=== PATIENT | female | born 1965 | race Two or more races ===

== ENCOUNTER 2017-10-18 02:23 | Emergency (ER) | payer OTHER ==
[~2017-10-18] VITALS: Ht 162.6 cm; Wt 76.5 kg
[~2017-10-18 02:23] MED LIST: CENTRUM COMPLE1 EACH PO; FIORICET,ESG1 TABLET PO; FISH OIL 1,0001 EACH PO; LUTEIN 15 MG S1 EACH PO; PEPCID COMPLET1 EACH PO; PROBIOTIC1 EACH PO; ROBITUSSIN AC,T10 ML PO; ROBITUSSIN DM118 ML PO; TESSALON PERLE100 MG PO; VIACTIV MULT PO
[2017-10-18 04:45] LABS: BASOPHIL COUNT 0.1 K/uL (0-0.1); EOSINOPHIL COUNT 0.1 K/uL (0-0.3); HEMATOCRIT 38.8 % (36.0-46.0); IMMATURE GRANULOCYTE (%) 0.2 % (0.0-0.7); INSTRUMENT ABS NEUTROPHIL CT 3.2 K/uL; LYMPHOCYTE COUNT 1.8 K/uL (1.0-2.8); MCH 28.4 PG (29.0-34.0); MCV 83.6 FL (83-99); MONOCYTE COUNT 0.7 K/uL (0-0.8); NEUTROPHIL COUNT 3.2 K/uL (1.8-6.4); PLATELET COUNT 347 K/uL (156-360); RBC DIS.WIDTH-CV 13.4 % (11.8-14.6); RBC DIS.WIDTH-SD 41.6 % (39-53); RED BLOOD COUNT 4.64 M/uL (3.80-5.20)
[2017-10-18 04:53] LABS: CHLORIDE 105 mEq/L (99-109); POTASSIUM 4.2 mEq/L (3.7-5.4); SODIUM 137 mEq/L (136-147)
[2017-10-18 04:55] LABS: GLUCOSE 101 mg/dL (70-99)
[2017-10-18 04:57] LABS: ANION GAP 11 MEQ/L (2-14); TOTAL BILIRUBIN 0.4 mg/dL (0.0-1.0)
[2017-10-18 04:59] LABS: ALKALINE PHOSPHATASE 69 IU/L (3-129); GFR ESTIMATE (CALCULATED) > 59 mL/min/
[2017-10-18 05:00] LABS: UREA NITROGEN (BUN) 10 mg/dL (9-23)
[2017-10-18 05:05] LABS: TROP-I INTERPRETATION NEGATIVE; TROPONIN-I < 0.01 ng/mL (0.0-0.30)
[2017-10-18] MEDS ORDERED: ZITHROMAX Z-PA250 MG PO (12:38)
[2017-10-18] MEDS ORDERED: PREDNISONE20 MG PO ×2 (12:38→12:51)
[2017-10-18] MEDS ORDERED: PROVENTIL HFA6.7 GM IH (12:38)
[2017-10-18 13:34] VITALS: BP 147/79
== END 2017-10-18 13:35 | disposition left against medical advice (07) ==
LOC: EME 02:23
PROVIDERS: Emergency Medicine
DX: J20.9 Acute bronchitis, unspecified (principal); Z88.8 Allergy status to other drugs, medicaments and biological substances; Z88.2 Allergy status to sulfonamides
CPT/HCPCS: 71020; 80053; 83605; 83880; 84484; 85025; 87502; 93005; 94640; 94644; J2930; J7030